=== PATIENT | female | born 1950 ===

== ENCOUNTER → 2018-04-15 | Outpatient (CLI) | payer MEDICARE, OTHER ==
--- NOTE | 2018-04-15 20:06 | XCELERA REPORT ---
[address] [address] Transthoracic Echocardiogram Report Name: DELVIN PAYNE Age: 67 yrs Gender: Female : 1950 Patient Status: Outpatient Patient Location: Study Date: 04/15/2018 03:11 PM Height: 67 in Weight: 205 lb BSA: 2.0 m2 Procedure: A complete two-dimensional transthoracic echocardiogram was performed (2D, M-mode, spectral and color flow Doppler). The study was technically adequate with some images being suboptimal in quality. Reason For Study: MURMUR Ordering Physician: WILMAR CONWAY Performed By: Alan Grey Interpretation Summary The left ventricular ejection fraction is normal. There is mild concentric left ventricular hypertrophy. The left ventricle is grossly normal size. Doppler measurements suggest pseudonormalized left ventricular relaxation, which is associated with grade II/IV or mild to moderate diastolic dysfunction Wall motion cannot be accurately commented on, but no definite regional wall motion abnormalities noted. The right ventricular systolic function is normal. The right atrium is normal. The left atrial size is normal. There is no mitral valve stenosis. There is a trace amount of mitral regurgitation No aortic regurgitation is present. There is no aortic valve stenosis There is no tricuspid stenosis. No tricuspid regurgitation. The aortic root is not well visualized but is probably normal size. The inferior vena cava appeared normal and decreased > 50% with respiration (RAP 5-10 mmHg) Minimal pericardial effusion. MMode/2D Measurements & Calculations RVDd: 3.7 cm LVIDd: 3.6 cm FS: 50.1 % Ao root diam: 3.0 cm IVSd: 1.3 cm LVIDs: 1.8 cm EDV(Teich): 54.3 ml LVPWd: 1.3 cm ESV(Teich): 9.7 ml Ao root area: 7.3 cm2 EF(Teich): 82.2 % LA dimension: 3.1 cm Doppler Measurements & Calculations MV E max lisa: MV P1/2t max lisa: Ao V2 max: LV V1 max P.1 cm/sec 112.2 cm/sec 166.8 cm/sec 3.2 mmHg MV A max lisa: MV P1/2t: 51.6 msec Ao max PG: LV V1 max: 70.6 cm/sec 11.1 mmHg 89.2 cm/sec MV E/A: 0.99 MVA(P1/2t): 4.3 cm2 MV dec slope: 636.9 cm/sec2 MV dec time: 0.27 sec PA V2 max: 95.6 cm/sec PA max P.7 mmHg Left Ventricle The left ventricle is grossly normal size. There is mild concentric left ventricular hypertrophy. The left ventricular ejection fraction is normal. Doppler measurements suggest pseudonormalized left ventricular relaxation, which is associated with grade II/IV or mild to moderate diastolic dysfunction. Wall motion cannot be accurately commented on, but no definite regional wall motion abnormalities noted. Right Ventricle The right ventricle is grossly normal size. There is normal right ventricular wall thickness. The right ventricular systolic function is normal. Atria The right atrium is normal. The left atrial size is normal. Interarterial septum not well visualized and not well dopplered. Cannot comment on ASD/PFO presence. Mitral Valve The mitral valve is not well visualized. There is no mitral valve stenosis. There is a trace amount of mitral regurgitation. Aortic Valve The aortic valve is mildly calcified. There is no aortic valve stenosis. No aortic regurgitation is present. Tricuspid Valve The tricuspid valve is not well visualized, but is grossly normal. There is no tricuspid stenosis. No tricuspid regurgitation. Pulmonic Valve The pulmonic valve is not well visualized. Great Vessels The aortic root is not well visualized but is probably normal size. The inferior vena cava appeared normal and decreased > 50% with respiration (RAP 5-10 mmHg). Effusions Minimal pericardial effusion. : WILMAR CONWAY > Alonso Reardon
== END ==
LOC: SP 14:42
DX: R01.1 Cardiac murmur, unspecified (principal)
CPT/HCPCS: 93306